=== PATIENT | female | born 1990 | race Caucasian/White ===

== ENCOUNTER → 2017-01-15 21:35 | Observation (INO) ==
[2017-01-15 20:15] LABS: Basophils % 0.2 %; Eosinophils # 0.1 K/mcL (0.0-0.6); Eosinophils % 0.4 %; Hematocrit 33.1 % (35.3-44.9); Hemoglobin 10.9 g/dL (11.5-15.4); Immature Granulocytes % 0.4 % (0-4); Lymphocytes # 1.8 K/mcL (0.6-4.6); Lymphocytes % 15.8 %; Mean Corpuscular HGB Conc 32.9 g/dL (31.6-35.5); Mean Corpuscular Volume 81.9 fL (83.0-100.0); Mean Platelet Volume 10.9 fL (9.4-12.4); Monocytes # 0.6 K/mcL (0.0-1.3); Monocytes % 5.5 %; Neutrophils # 8.7 K/mcL (1.6-8.9); Platelet Count 193 K/mcL (140-400); Red Blood Count 4.04 M/mcL (3.82-4.97); Red Cell Distribution Width 13.5 % (11.5-14.5); Segmented Neutrophils % 77.7 %
[2017-01-15 20:21] LABS: Prothrombin Time 10.5 Seconds (9.4-12.1)
[2017-01-15 20:23] LABS: Activated Partial Thrombo Time 27.7 Seconds (26.0-36.0)
[~2017-01-15 21:35] MED LIST: Rho Immune Globulin 1,500 UNIT SYRINGE IM ONE
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
== END | disposition home or self-care (01) ==
LOC: 1NENULAB
PROVIDERS: ADMIT Advanced Practice Midwife; ATTEND Obstetrics & Gynecology

== ENCOUNTER 2017-05-13 02:12 | Inpatient (IN) ==
[2017-05-13] MEDS ORDERED: Metoclopramide 10 MG/2 ML VIAL IVP PRN (02:32)
[2017-05-13] MEDS ORDERED: Naloxone 0.4 MG/ML INJ IVP PRN (02:32)
[2017-05-13] MEDS ORDERED: Famotidine 20 MG/2 ML VIAL IVP PRN (02:32)
[2017-05-13] MEDS ORDERED: Ringers Solution, Lactated 1,000 ML ONE (02:37)
[2017-05-13] MEDS ORDERED: Ringers Solution, Lactated 1,000 ML IVC SCH (02:45)
[2017-05-13 02:59] LABS: Basophils % 0.1 %; Eosinophils # 0.1 K/mcL (0.0-0.6); Eosinophils % 0.5 %; Hematocrit 39.4 % (35.3-44.9); Hemoglobin 12.4 g/dL (11.5-15.4); Immature Granulocytes % 0.6 % (0-4); Lymphocytes # 2.5 K/mcL (0.6-4.6); Lymphocytes % 25.5 %; Mean Corpuscular HGB Conc 31.5 g/dL (31.6-35.5); Mean Corpuscular Hemoglobin 26.1 pg (28.0-33.3); Mean Corpuscular Volume 82.8 fL (83.0-100.0); Mean Platelet Volume 12.1 fL (9.4-12.4); Monocytes # 0.6 K/mcL (0.0-1.3); Monocytes % 5.8 %; Neutrophils # 6.6 K/mcL (1.6-8.9); Platelet Count 146 K/mcL (140-400); Red Blood Count 4.76 M/mcL (3.82-4.97); Red Cell Distribution Width 14.2 % (11.5-14.5); Segmented Neutrophils % 67.5 %
[2017-05-13 03:08] LABS: Amphetamine Screen,Urine Negative ng/mL (Cutoff=1000); Barbiturate Screen,Urine Negative ng/mL (Cutoff=200); Benzodiazepines Screen,Urine Negative ng/mL (Cutoff=200); Cannabinoid Screen,Urine Negative ng/mL (Cutoff = 50); Cocaine Screen,Urine Negative ng/mL (Cutoff= 300); Opiate Screen,Urine Negative ng/mL (Cutoff=300); Phencyclidine Screen,Urine Negative ng/mL (Cutoff=25)
--- NOTE | 2017-05-13 04:31 | OB/GYN History & Physical ---
Date of Encounter: 05/13/17 Time of Encounter: 04:29 Assessment and Plan (1) 39 weeks gestation of Current visit: Yes Status: Acute (2) SROM (spontaneous rupture of membranes) Current visit: Yes Status: Acute Admit to labor and delivery GBS negative Intermittent auscultation q30 before during and after a contraction Pt does not desire epidural will expectantly manage at this point Anticipate History of Present Illness Chief complaint: Rupture of memebranes HPI: She is a 26-year-old who will be 39 weeks at the time of induction who reports an active fetus. She denies any vaginal bleeding. SROM of clear fluid at 130. She has a history of a 9 lbs. 2 oz. vaginal delivery. This has been complicated by maternal dyspnea. She has a history of asthma for which she is medicating. She has a large for gestational age fetus. She has had sciatica with the as well. She has a history of Gretchen's thyroiditis which been stable during the Labs: O- and she has received RhoGAM. GBS negative. She is rubella immune and varicella immune. All other serologies negative Past Med Surg Social Fam HX - Past Medical History Medical history: asthma Psychiatric history: no psych history - Past Surgical History Surgical History: other - Social History Smoking Status: Never smoker Smokeless Tobacco Status: No Alcohol use: none Drug use: none - Family History Father Living Status: Still Living Hx Family Cardiac Disorders: Yes (HTN, HEART DISEASE) Hx Family Respiratory Disorders: No Hx Family Cancer: No Hx Family GI Disorders: No Hx Family Genitourinary Disorders: No Hx Family Endocrine Disorder: No Hx Family Musculoskeletal Disorders: No Hx Family Neuromuscular Disorders: No Hx Family Neurologic Disorders: No Hx Family HEENT Disorders: No Hx Family Autoimmune Disorders: No Hx Family Reproductive Disorders: No Hx Family Psychosocial Disorders: No Hx Family Medical Disorders: No Obstetrical History - Pregnancies : 2 Para: 1 Term: 1 : 0 Ab's: 0 Livin Medications and Allergies Ferrous Sulfate 325 mg PO DAILY 05/13/17 [History] Formula Tablet 1 tab PO DAILY 05/13/17 [History] 3 Allergy/AdvReac Type Severity Reaction Status Date / Time codeine Allergy Nausea Verified 05/13/17 02:37 Exam - Vital Signs Vital signs: Initial Vital Signs Temp Pulse Resp BP 97.6 F 77 16 118/87 05/13/17 02:25 05/13/17 02:25 05/13/17 02:25 05/13/17 02:25 - Constitutional Constitutional: well developed, well nourished, no acute distress, average body habitus - Lungs Respiratory exam: CTAB - Cardiovascular Cardiovascular exam: RRR - Abdomen Abdomen: Present: bowel sounds normal, gravid, non tender - Extremities Extremities exam: normal inspection - Cervix Dilation: 5 (Per RN) - Uterus Uterus exam: Present: normal size, normal contour Results Result Diagrams: 05/13/17 02:43 Abnormal lab results MCV 82.8 fL (83.0-100.0) L 05/13/17 02:43 MCH 26.1 pg (28.0-33.3) L 05/13/17 02:43 MCHC 31.5 g/dL (31.6-35.5) L 05/13/17 02:43 All other labs normal. - VTE Reasons for not Prescribing Prophylaxis: Treatment not Indicated - Low risk for VTE
--- NOTE | 2017-05-13 08:21 | OB Labor Progress Note ---
Date of Encounter: 05/13/17 Time of Encounter: 08:05 Labor Progress Note - Subjective Subjective: The patient has become uncomfortable with contractions. She declines any anesthesia or intervention at this time. She is requesting a cervical exam - Vital Signs Vital Signs: Afebrile, vital signs stable - Cervix Cervix: 7/100/0, vertex - Heart Tones Heart Tones: 130s baseline, CAT 1 - Bruce Bruce: Spontaneous every 2 minutes - Interventions Interventions: 39 week IUP spontaneous labor - Plan Plan: Anticipate vaginal delivery, support as needed
[2017-05-13] MEDS ORDERED: Oxytocin 20 units/ LR 1000 mL 20 UNIT/1,000 ML BAG IVC ONE ×2 (09:05→11:34)
[2017-05-13] MEDS ORDERED: Lidocaine 1% 20 ML MDV ONE (09:08)
[2017-05-13] MEDS ORDERED: Ibuprofen 600 MG TABLET PO ONE (09:49)
--- NOTE | 2017-05-13 09:55 | OB/GYN Procedure Note ---
Delivery - Delivery Date: 05/13/17 Provider: Chayo Cruz Intrapartum events: none Delivery induction: none Delivery monitor: external FHT, external uterine Anesthesia: local Estimated Blood Loss: 100 - Infant (s) A Infant Delivery Date: 05/13/17 Delivery Time: Presentation: vertex Position: JOSE Route of delivery: Gender: Male Viability: Viable Pounds: 9 Ounces: 7 Weight Gram: 4.28 kg at 1 minute: 8 at 5 mins: 9 Shoulder Dystocia: not encountered Specimens collected: cord blood Placenta: spontaneous, uterine exploration Cord: 3 umbilical vessels - Repair Episiotomy: none Laceration Description: Perineal - 2nd Degree - Complications Delivery complications: none Delivery comments: The patient was complete and pushing without anesthesia with a spontaneous vaginal delivery in the JOSE position of a vigorous male infant weighing 9 lbs. 7 oz. with Apgars of 8 at 1 minute and 9 at 5 minutes. Infant was placed on the maternal abdomen. The cord was clamped and cut after pulsations ceased. Cord blood obtained. The placenta was delivered spontaneous and intact. The intrauterine cavity was digitally inspected and no retained products of conception identified. Right labial hematoma was 3 cm in size and not enlarging on the right vaginal wall. There was a second-degree perineal laceration which was repaired with 3-0 Vicryl in the usual fashion. Estimated blood loss 100 mL, complications none - Disposition Mom disposition: stable in LDR disposition: stable in LDR
[2017-05-13] MEDS ORDERED: Measles/Mumps/Rubella Vacc 0.5 ML VIAL SQ PRN (12:05)
[2017-05-13] MEDS ORDERED: Oxytocin 20 units/ LR 1000 mL 20 UNIT/1,000 ML BAG IVC SCH (12:05)
[2017-05-13] MEDS ORDERED: Rho Immune Globulin 1,500 UNIT SYRINGE IM PRN (12:05)
[2017-05-13] MEDS ORDERED: Acetaminophen 325 MG TABLET PO PRN (12:05)
[2017-05-13] MEDS: Ibuprofen 600 MG TABLET PO SCH (21:23)
[2017-05-14] MEDS: Ibuprofen 600 MG TABLET PO SCH ×2 (04:31→18:43)
[2017-05-14 05:31] LABS: Basophils % 0.1 %; Hematocrit 32.1 % (35.3-44.9)
[2017-05-14 05:32] LABS: Eosinophils # 0.1 K/mcL (0.0-0.6); Eosinophils % 0.8 %; Hemoglobin 10.1 g/dL (11.5-15.4); Immature Granulocytes % 0.8 % (0-4); Immature Platelets 10.6 % (1.1-6.1); Lymphocytes # 1.9 K/mcL (0.6-4.6); Lymphocytes % 20.7 %; Mean Corpuscular HGB Conc 31.5 g/dL (31.6-35.5); Mean Corpuscular Hemoglobin 26.2 pg (28.0-33.3); Mean Corpuscular Volume 83.2 fL (83.0-100.0); Mean Platelet Volume 12.6 fL (9.4-12.4); Monocytes # 0.5 K/mcL (0.0-1.3); Monocytes % 5.3 %; Neutrophils # 6.5 K/mcL (1.6-8.9); Red Blood Count 3.86 M/mcL (3.82-4.97); Red Cell Distribution Width 14.4 % (11.5-14.5); Segmented Neutrophils % 72.3 %
[2017-05-14 05:35] LABS: Platelet Count 95 K/mcL (140-400)
--- NOTE | 2017-05-14 09:09 | Discharge Summary ---
Date of Encounter: 05/14/17 Time of Encounter: 09:13 - Discharge Diagnosis (1) 39 weeks gestation of Priority: Secondary Status: Resolved (2) SROM (spontaneous rupture of membranes) Priority: Secondary Status: Resolved (3) Rh negative state in antepartum period Priority: Secondary Status: Chronic Comments: Rhogam given (4) Vaginal delivery Priority: Primary Status: Acute Comments: Status post vaginal delivery day 1. Pain well controlled. Lochia without clots. Tolerating regular diet. Denies perineal pain. VSS. Desires compatible control at follow up appointment. Urinating without difficulty. (5) Patient is a currently breast-feeding mother Priority: Primary Status: Acute Comments: without difficulty. - Discharge Medications Prescriptions: Ibuprofen [Motrin] 600 mg PO Q6HR #30 tab Docusate [Colace] 100 mg PO BID PRN #10 PRN Reason: Constipation Ferrous Sulfate 325 mg PO DAILY #60 tab Home Medications: Formula Tablet 1 tab PO DAILY 05/13/17 [History] Docusate [Colace] 100 mg PO BID PRN #10 05/14/17 [Rx] Ferrous Sulfate 325 mg PO DAILY #60 tab 05/14/17 [Rx] Ibuprofen [Motrin] 600 mg PO Q6HR #30 tab 05/14/17 [Rx] Allergies/Adverse Reactions: 3 Allergy/AdvReac Type Severity Reaction Status Date / Time codeine Allergy Nausea Verified 05/13/17 02:37 Data Procedures and tests throughout hospitalization: Laboratory Tests 05/13/17 05/13/17 05/13/17 02:40 02:43 09:53 WBC 9.8 RBC 4.76 Hgb 12.4 Hct 39.4 MCV 82.8 L MCH 26.1 L MCHC 31.5 L RDW 14.2 Plt Count 146 MPV 12.1 Immature Gran % 0.6 Seg Neutrophils % 67.5 Lymphocytes % 25.5 Monocytes % 5.8 Eosinophils % 0.5 Basophils % 0.1 Neutrophils # 6.6 Lymphocytes # 2.5 Monocytes # 0.6 Eosinophils # 0.1 Basophils # 0.0 Immature Plt Fraction Urine Opiates Screen Negative Ur Barbiturates Screen Negative Ur Phencyclidine Scrn Negative Ur Amphetamines Screen Negative U Benzodiazepines Scrn Negative Urine Cocaine Screen Negative U Marijuana (THC) Screen Negative Screen NEGATIVE Baby's Blood Type O RH POSITIVE Mother's Blood Type O RH NEGATIVE Rhogam Indicated YES Rhogam Req for Mother 1 05/14/17 04:59 WBC 9.0 RBC 3.86 Hgb 10.1 L D Hct 32.1 L MCV 83.2 MCH 26.2 L MCHC 31.5 L RDW 14.4 Plt Count 95 L MPV 12.6 H Immature Gran % 0.8 Seg Neutrophils % 72.3 Lymphocytes % 20.7 Monocytes % 5.3 Eosinophils % 0.8 Basophils % 0.1 Neutrophils # 6.5 Lymphocytes # 1.9 Monocytes # 0.5 Eosinophils # 0.1 Basophils # 0.0 Immature Plt Fraction 10.6 H Urine Opiates Screen Ur Barbiturates Screen Ur Phencyclidine Scrn Ur Amphetamines Screen U Benzodiazepines Scrn Urine Cocaine Screen U Marijuana (THC) Screen Screen Baby's Blood Type Mother's Blood Type Rhogam Indicated Rhogam Req for Mother Labs on day of discharge: Labs from last 24 hours 05/14/17 05/13/17 04:59 09:53 WBC 9.0 RBC 3.86 Hgb 10.1 L D Hct 32.1 L MCV 83.2 MCH 26.2 L MCHC 31.5 L RDW 14.4 Plt Count 95 L MPV 12.6 H Immature Gran % 0.8 Seg Neutrophils % 72.3 Lymphocytes % 20.7 Monocytes % 5.3 Eosinophils % 0.8 Basophils % 0.1 Neutrophils # 6.5 Lymphocytes # 1.9 Monocytes # 0.5 Eosinophils # 0.1 Basophils # 0.0 Immature Plt Fraction 10.6 H Screen NEGATIVE Baby's Blood Type O RH POSITIVE Mother's Blood Type O RH NEGATIVE Rhogam Indicated YES Rhogam Req for Mother 1 Date of admission: 05/13/17 02:12 Primary care physician: Indio Donnelly MD Consults: 05/13/17 12:05 Consult to Meter Supervisor [CONS] Routine Comment: Vaginal delivery, consult needed Discharging clinician: Haylee Montano Anticipated date of discharge: 05/14/17 - Patient Status Disposition: Home, Self-Care Condition: Good Functional capacity at discharge: independent ambulation Overall status at discharge: patient is progressing back to baseline - Discharge Instructions Follow Up With: Indio Donnelly MD [Primary Care Provider] - Chayo Cruz MD [Partnered Physician] - - Diet and Activity Activity: increase activity as tolerated Diet: regular diet Hospital Course Reason for admission: active labor, rupture of membranes Delivery: Episiotomy: none Laceration: 2nd degree Other procedures: none complications: hematoma (R labial hematoma; decreasing in size.) Discharge diagnosis: IUP at term delivered [place] baby: male Time Attestation: Total time spent providing and/or coordinating discharge services: Time Spent: Less than 30 minutes Exam - Constitutional Vitals: Temp Pulse Resp BP Pulse Ox 97.8 F 70 16 119/79 98 05/14/17 04:00 05/14/17 04:00 05/14/17 04:00 05/14/17 04:00 05/14/17 04:00 General appearance IM: A&O X 3, no acute distress - Respiratory Respiratory exam: Present: CTAB - Cardiovascular Cardiovascular exam IM: Present: +S1, +S2 - GI/Abdominal GI/Abdominal exam IM: normal bowel sounds, soft - Uterine Tone: Firm Uterus Position: 2 Fingers Below Umbilicus, Midline - Neurological Exam Neurological exam: alert, oriented X3
[2017-05-14] MEDS: Prenatal Vit/FA 1 EACH TABLET PO SCH (09:32)
[2017-05-14 23:10] VITALS: BP 130/80
--- NOTE | 2017-05-15 08:35 | Discharge Summary ---
Date of Encounter: 05/15/17 Time of Encounter: 08:33 - Discharge Diagnosis (1) Patient is a currently breast-feeding mother Priority: Secondary Status: Acute Comments: support prn (2) Vaginal delivery Priority: Primary Status: Acute Comments: continue routine care discharge home today follow up with Dr. Cruz in 4-6 weeks - Discharge Medications Prescriptions: Ibuprofen [Motrin] 600 mg PO Q6HR #30 tab Breast Pump [BREAST PUMP] 1 each .ROUTE AD #1 each Docusate [Colace] 100 mg PO BID PRN #10 PRN Reason: Constipation Ferrous Sulfate 325 mg PO DAILY #60 tab Home Medications: Formula Tablet 1 tab PO DAILY 05/13/17 [History] Docusate [Colace] 100 mg PO BID PRN #10 05/14/17 [Rx] Ferrous Sulfate 325 mg PO DAILY #60 tab 05/14/17 [Rx] Ibuprofen [Motrin] 600 mg PO Q6HR #30 tab 05/14/17 [Rx] Breast Pump [BREAST PUMP] 1 each .ROUTE AD #1 each 05/15/17 [Rx] Allergies/Adverse Reactions: 3 Allergy/AdvReac Type Severity Reaction Status Date / Time codeine Allergy Nausea Verified 05/13/17 02:37 Data Procedures and tests throughout hospitalization: Laboratory Tests 05/13/17 05/13/17 05/13/17 02:40 02:43 09:53 WBC 9.8 RBC 4.76 Hgb 12.4 Hct 39.4 MCV 82.8 L MCH 26.1 L MCHC 31.5 L RDW 14.2 Plt Count 146 MPV 12.1 Immature Gran % 0.6 Seg Neutrophils % 67.5 Lymphocytes % 25.5 Monocytes % 5.8 Eosinophils % 0.5 Basophils % 0.1 Neutrophils # 6.6 Lymphocytes # 2.5 Monocytes # 0.6 Eosinophils # 0.1 Basophils # 0.0 Immature Plt Fraction Urine Opiates Screen Negative Ur Barbiturates Screen Negative Ur Phencyclidine Scrn Negative Ur Amphetamines Screen Negative U Benzodiazepines Scrn Negative Urine Cocaine Screen Negative U Marijuana (THC) Screen Negative Screen NEGATIVE Baby's Blood Type O RH POSITIVE Mother's Blood Type O RH NEGATIVE Rhogam Indicated YES Rhogam Req for Mother 1 05/14/17 04:59 WBC 9.0 RBC 3.86 Hgb 10.1 L D Hct 32.1 L MCV 83.2 MCH 26.2 L MCHC 31.5 L RDW 14.4 Plt Count 95 L MPV 12.6 H Immature Gran % 0.8 Seg Neutrophils % 72.3 Lymphocytes % 20.7 Monocytes % 5.3 Eosinophils % 0.8 Basophils % 0.1 Neutrophils # 6.5 Lymphocytes # 1.9 Monocytes # 0.5 Eosinophils # 0.1 Basophils # 0.0 Immature Plt Fraction 10.6 H Urine Opiates Screen Ur Barbiturates Screen Ur Phencyclidine Scrn Ur Amphetamines Screen U Benzodiazepines Scrn Urine Cocaine Screen U Marijuana (THC) Screen Screen Baby's Blood Type Mother's Blood Type Rhogam Indicated Rhogam Req for Mother Date of admission: 05/13/17 02:12 Primary care physician: Indio Donnelly MD Consults: 05/13/17 12:05 Consult to Curtain Fitter [CONS] Routine Comment: Vaginal delivery, consult needed Discharging clinician: Alanis Wall Anticipated date of discharge: 05/15/17 - Patient Status Disposition: Home, Self-Care Condition: Good - Discharge Instructions Follow Up With: Indio Donnelly MD [Primary Care Provider] - Chayo Cruz MD [Partnered Physician] - - Diet and Activity Activity: increase activity as tolerated Diet: regular diet Hospital Course Delivery: Episiotomy: none Laceration: 2nd degree Other procedures: none complications: none Discharge diagnosis: IUP at term delivered [place] baby: male (breast feeding) Time Attestation: Total time spent providing and/or coordinating discharge services: Time Spent: Less than 30 minutes Exam - Constitutional Vitals: Temp Pulse Resp BP Pulse Ox 97.5 F L 75 16 130/80 98 05/14/17 22:00 05/14/17 22:00 05/14/17 22:00 05/14/17 22:00 05/14/17 22:00 General appearance IM: A&O X 3, no acute distress, answers questions appropriately - Respiratory Respiratory exam: Present: CTAB - Cardiovascular Cardiovascular exam IM: Present: RRR, +S1, +S2 - GI/Abdominal GI/Abdominal exam IM: normal bowel sounds - Uterine Tone: Firm Uterus Position: 1 Finger Below Umbilicus, Midline - Extremities Exam Extremities exam IM: Present: full ROM, normal capillary refill, normal inspection - Neurological Exam Neurological exam: alert, oriented X3, reflexes normal
[2017-05-15] MEDS: Prenatal Vit/FA 1 EACH TABLET PO SCH (09:03)
== END 2017-05-15 11:10 | disposition home or self-care (01) | DRG 775 ==
LOC: 1NENULAB → OBSVTOIN 02:12 → 1NENUOBS 11:59
PROVIDERS: ADMIT Advanced Practice Midwife; ATTEND Advanced Practice Midwife

== ENCOUNTER 2020-01-20 12:07 | Inpatient (IN) ==
[2020-01-20] MEDS ORDERED: EPHEDrine 50 MG/ML VIAL IVP PRN (12:17)
[2020-01-20] MEDS ORDERED: Ondansetron 4 MG/2 ML VIAL IVP PRN (12:22)
[2020-01-20] MEDS ORDERED: Famotidine 20 MG/2 ML VIAL IVP PRN (12:22)
[2020-01-20] MEDS ORDERED: Naloxone 0.4 MG/ML INJ IVP PRN (12:22)
[2020-01-20] MEDS ORDERED: *HR* FentaNYL (PF) 100 MCG/2 ML VIAL IVP PRN (12:22)
[2020-01-20] MEDS ORDERED: Lidocaine 1% 20 ML MDV INFILT PRN (12:22)
[2020-01-20] MEDS ORDERED: Metoclopramide 10 MG/2 ML VIAL IVP PRN (12:22)
[2020-01-20] MEDS ORDERED: Epidural Premix (fent/bupiv) 110 ML EP SCH (12:30)
[2020-01-20] MEDS ORDERED: Ringers Solution, Lactated 1,000 ML IVC SCH (12:30)
[2020-01-20 13:12] LABS: Basophils % 0.2 %; Eosinophils % 0.2 %; Hematocrit 38.5 % (35.3-44.9); Hemoglobin 12.3 g/dL (11.5-15.4); Immature Granulocytes % 0.5 % (0-4); Lymphocytes # 1.5 K/mcL (0.6-4.6); Lymphocytes % 18.3 %; Mean Corpuscular HGB Conc 31.9 g/dL (31.6-35.5); Mean Corpuscular Hemoglobin 27.4 pg (28.0-33.3); Mean Corpuscular Volume 85.7 fL (83.0-100.0); Mean Platelet Volume 11.6 fL (9.4-12.4); Monocytes # 0.4 K/mcL (0.0-1.3); Monocytes % 4.4 %; Neutrophils # 6.2 K/mcL (1.6-8.9); Platelet Count 169 K/mcL (140-400); Red Blood Count 4.49 M/mcL (3.82-4.97); Red Cell Distribution Width 14.5 % (11.5-14.5); Segmented Neutrophils % 76.4 %; White Blood Count 8.1 K/mcL (4.3-11.1)
[2020-01-20 13:20] LABS: Amphetamine Screen,Urine Negative ng/mL (Cutoff=1000); Barbiturate Screen,Urine Negative ng/mL (Cutoff=200); Benzodiazepines Screen,Urine Negative ng/mL (Cutoff=200); Cannabinoid Screen,Urine Negative ng/mL (Cutoff = 50); Cocaine Screen,Urine Negative ng/mL (Cutoff= 300); Opiate Screen,Urine Negative ng/mL (Cutoff=300); Phencyclidine Screen,Urine Negative ng/mL (Cutoff=25)
[2020-01-20] MEDS ORDERED: Oxytocin 20 units/ LR 1000 mL 20 UNIT/1,000 ML BAG IVC SCH ×2 (14:00→21:03)
[2020-01-20] MEDS ORDERED: Acetaminophen 325 MG TABLET PO PRN (21:03)
[2020-01-20] MEDS ORDERED: Ibuprofen 600 MG TABLET PO PRN (21:03)
[2020-01-20] MEDS ORDERED: Measles/Mumps/Rubella Vacc 0.5 ML VIAL SQ PRN (21:03)
[2020-01-20] MEDS ORDERED: Rho Immune Globulin 1,500 UNIT SYRINGE IM PRN (21:03)
[2020-01-21 07:18] LABS: Basophils % 0.1 %; Eosinophils % 0.4 %; Hematocrit 34.7 % (35.3-44.9); Hemoglobin 11.1 g/dL (11.5-15.4); Immature Granulocytes % 0.5 % (0-4); Lymphocytes # 1.5 K/mcL (0.6-4.6); Lymphocytes % 13.5 %; Mean Corpuscular Hemoglobin 27.4 pg (28.0-33.3); Mean Corpuscular Volume 85.7 fL (83.0-100.0); Monocytes # 0.6 K/mcL (0.0-1.3); Monocytes % 5.7 %; Neutrophils # 8.9 K/mcL (1.6-8.9); Platelet Count 145 K/mcL (140-400); Red Blood Count 4.05 M/mcL (3.82-4.97); Red Cell Distribution Width 14.4 % (11.5-14.5); Segmented Neutrophils % 79.8 %; White Blood Count 11.1 K/mcL (4.3-11.1)
[2020-01-21] MEDS ORDERED: Prenatal Vit/FA 1 EACH TABLET PO SCH (09:00)
[2020-01-21 17:00] VITALS: BP 123/94
== END 2020-01-21 18:40 | disposition home or self-care (01) | DRG 807 ==
LOC: 1NENULAB 12:07 → 1NENUOBS 21:01 → 1NENULAB 21:12 → 1NENUOBS 21:54
PROVIDERS: ADMIT Obstetrics & Gynecology; ATTEND Obstetrics & Gynecology